=== PATIENT | female | born 1995 | race American Indian/Alaskan Native ===

== ENCOUNTER 2021-01-28 08:25 | Outpatient (CLI) | payer BC, MEDICAID ==
[2021-01-28 08:59] VITALS: BP 111/77
== END 2021-01-28 10:36 | disposition home or self-care (01) ==
LOC: TRG 08:25 → APU 08:27 → TRG 10:36
PROVIDERS: ATTEND Obstetrics & Gynecology
DX: O26.893 Other specified pregnancy related conditions, third trimester (principal); N93.9 Abnormal uterine and vaginal bleeding, unspecified; Z3A.38 38 weeks gestation of pregnancy
CPT/HCPCS: 59025

== ENCOUNTER 2021-02-03 11:59 | Inpatient (IN) | payer MEDICAID ==
[2021-02-03] MEDS ORDERED: LIDOCAINE (2%) 20 MG/1 ML VIAL 20 ML MDV INFILTRATI ONE (14:02)
[2021-02-03] MEDS ORDERED: LOPERAMIDE 2 MG CAP PO PRN (14:02)
[2021-02-03] MEDS ORDERED: fentaNYL 100 MCG/2 ML INJ IV PRN (14:02)
[2021-02-03] MEDS ORDERED: BUTORPHANOL 2 MG/1 ML INJ IV PRN ×2 (14:02)
[2021-02-03] MEDS ORDERED: TERBUTALINE 1 MG/1 ML INJ SUB-Q PRN (14:02)
[2021-02-03] MEDS ORDERED: CARBOPROST TROMETHAMINE 250 MCG/1 ML INJ IM PRN (14:02)
[2021-02-03] MEDS ORDERED: METHYLERGONOVINE MALEATE 0.2 MG/ML VIAL IM PRN (14:02)
[2021-02-03] MEDS ORDERED: miSOPROStol 200 MCG TAB PR PRN (14:02)
[2021-02-03] MEDS ORDERED: ACETAMINOPHEN 325 MG TAB PO PRN (14:02)
[2021-02-03] MEDS ORDERED: ePHEDrine SULFATE 50 MG/1 ML INJ IV PRN ×2 (14:02→16:59)
[2021-02-03] MEDS ORDERED: OXYTOCIN 10 UNIT/1 ML INJ IM PRN (14:02)
[2021-02-03] MEDS ORDERED: ONDANSETRON 4 MG/2 ML INJ IV PRN ×2 (14:02→19:59)
[2021-02-03] MEDS ORDERED: LACTATED RINGERS 1,000 ML IV SCH (14:15)
[2021-02-03 14:47] LABS: Hematocrit 36.8 % (30.3-42.9); Hemoglobin 12.7 gm/dl (10.1-14.3); Mean Corpuscular HGB Conc 35 % (30-34); Mean Corpuscular Volume 97 fl (79-97); Platelet Count 174 K/mm3 (140-440); Red Cell Distribution Width 13.5 % (13.2-15.2)
[2021-02-03] MEDS ORDERED: OXYTOCIN DRIP 30 UNITS/500 ML BAG IV SCH ×2 (15:00)
[2021-02-03] MEDS ORDERED: NALOXONE 2 MG/2 ML INJ IV PRN (16:59)
[2021-02-03] MEDS ORDERED: fentaNYL-BUPIV 2 MCG/ML-0.125% 200 MCG/100 ML BAG EPIDURAL SCH (17:00)
--- NOTE | 2021-02-03 18:45 | History and Physical Report ---
History of Present Illness Date of examination: 02/03/21 Date of admission: 02/03/21 12:00 Chief complaint: I am in labor History of present illness: Patient is 25-year-old 1 para 0 who presents at 39-2/7 weeks in active labor. Patient received care at [facility]. She has had uncomplicated course. She is GBS negative. Past History Past Medical History: no pertinent history Past Surgical History: no surgical history Family/Genetic History: none Social history: single - Obstetrical History Expected Date of Delivery: 02/08/21 Actual Gestation: 39 Week(s) 2 Day(s) : 1 Para: 0 Number of Living Children: 0 Medications and Allergies Allergies Allergy/AdvReac Type Severity Reaction Status Date / Time No Known Allergies Allergy Verified 02/20/14 23:05 Home Medications Medication Instructions Recorded Confirmed Last Taken Type Acetamin/Codeine 120-12Mg/5 ml 10 ml PO TID PRN #120 ml 02/21/14 02/03/21 Unknown Rx [Tylenol/Codeine] Amoxicillin [Trimox CAP] 500 mg PO Q8H #21 capsule 02/21/14 02/03/21 Unknown Rx Ondansetron [Zofran Odt] 8 mg PO Q8H PRN #14 tab.rapdis 02/21/14 02/03/21 Unknown Rx Active Meds: Active Medications Acetaminophen (Acetaminophen 325 Mg Tab) 650 mg PO Q4H PRN PRN Reason: Pain, Mild (1-3) Butorphanol Tartrate (Butorphanol 2 Mg/1 Ml Inj) 1 mg IV Q2H PRN PRN Reason: Pain, Moderate(4-6) LABOR PAIN Butorphanol Tartrate (Butorphanol 2 Mg/1 Ml Inj) 2 mg IV Q2H PRN PRN Reason: Pain , Severe (7-10) Carboprost Tromethamine (Carboprost Tromethamine 250 Mcg/1 Ml Inj) 250 mcg IM ONCE PRN PRN Reason: Uterine Bleeding Ephedrine Sulfate (Ephedrine Sulfate 50 Mg/1 Ml Inj) 10 mg IV Q2M PRN PRN Reason: Hypotension Fentanyl (Fentanyl 100 Mcg/2 Ml Inj) 100 mcg IV Q2H PRN PRN Reason: Pain,Severe (7-10) LABOR PAIN Last Admin: 02/03/21 18:08 Dose: 100 mcg Documented by: Oxytocin/Sodium Chloride (Pitocin/Ns 30 Unit/500ml) 30 units in 500 mls @ 4 mls/hr IV TITR ENEIDA; Protocol Last Admin: 02/03/21 16:15 Dose: 2 ml/hr, 2 mls/hr Documented by: Lactated Ringer's (Lactated Ringers) 1,000 mls @ 125 mls/hr IV DIRECT ENEIDA Last Admin: 02/03/21 14:49 Dose: 125 mls/hr Documented by: Oxytocin/Sodium Chloride (Pitocin/Ns 30 Unit/500ml) 30 units in 500 mls @ 40 mls/hr IV TITR ENEIDA; Protocol Fentanyl/Bupivacaine/Sodium Chlor (Fentanyl-Bupiv 2 Mcg/Ml-0.125%) 200 mcg in 100 mls @ 12 mls/hr EPIDURAL TITR ENEIDA; Protocol Loperamide HCl (Loperamide 2 Mg Cap) 2 mg PO ONCE PRN PRN Reason: give with Hemabate Methylergonovine Maleate (Methylergonovine Maleate 0.2 Mg/Ml Vial) 0.2 mg IM ONCE PRN PRN Reason: Uterine Bleeding Mineral Oil (Mineral Oil 30 Ml Oral Liqd) 30 ml PO QHS PRN PRN Reason: Constipation Last Admin: 02/03/21 18:09 Dose: 30 ml Documented by: Misoprostol (Misoprostol 200 Mcg Tab) 800 mcg MN ONCE PRN PRN Reason: Uterine Bleeding Naloxone HCl (Naloxone 2 Mg/2 Ml Inj) 0.2 mg IV Q5M PRN PRN Reason: Respiratory sedation Ondansetron HCl (Ondansetron 4 Mg/2 Ml Inj) 4 mg IV Q8H PRN PRN Reason: Nausea And Vomiting Oxytocin (Oxytocin 10 Unit/1 Ml Inj) 10 unit IM ONCE PRN PRN Reason: Uterine Bleeding Terbutaline Sulfate (Terbutaline 1 Mg/1 Ml Inj) 0.25 mg SUB-Q ONCE PRN PRN Reason: Hyperstimulation/Hypertonicity Review of Systems All systems: negative Constitutional: weight gain Genitourinary: pelvic pain, contractions - Vital Signs Vital signs: Vital Signs Pulse Pulse Ox 68 100 02/03/21 12:34 02/03/21 12:34 Temp Pulse Resp BP Pulse Ox 98.1 F 74 18 99/63 100 02/03/21 17:30 02/03/21 18:29 02/03/21 14:30 02/03/21 18:21 02/03/21 18:29 - Physical Exam Breasts: Cardiovascular: Regular rate, Normal S1, Normal S2 Lungs: Positive: Clear to auscultation, Normal air movement Abdomen: Positive: normal appearance, soft, normal bowel sounds. Negative: distention, tenderness Genitourinary (Female): Positive: normal external genitalia, normal perenium Vulva: both: normal Vagina: Positive: normal moisture. Negative: discharge Cervix: Negative: lesion, discharge Uterus: Positive: normal size, normal contour Adnexa: both: normal Anus/Rectum: Positive: normal perianal skin, heme negative. Negative: rectal mass, hemorrhoids Extremities: Deep Tendon Reflex Grade: Normal +2 - Obstetrical FHR: auscultation normal Cervical Dilatation: 5 Cervical Effacement Percentage: 90 station: -2 Uterine Contraction Pattern: Regular Uterine Tone Measurement Phase: Contraction Uterine Contraction Intensity: Moderate Results Result Diagrams: 02/03/21 13:40 Abnormal lab results 02/03/21 Range/Units 13:40 MCH 34 H (28-32) pg MCHC 35 H (30-34) % All other labs normal. Assessment and Plan 25-year-old 1 para 0 here in active labor. Will admit for same. Patient does not want an epidural therefore we will proceed with only IV pain medicine. Anticipate .
--- NOTE | 2021-02-03 18:51 | Procedure Note ---
OB Delivery Note - Delivery Date of Delivery: 02/03/21 Surgeon: SHANIQUE WATT Estimated blood loss: 200cc - Vaginal Delivery presentation: vertex Delivery position: OA Intrapartum events: none Delivery induction: none Delivery augmentation: rupture of membranes, pitocin Delivery monitor: external FHT, external uterine Route of delivery: Delivery placenta: spontaneous Delivery cord: nuchal cord, 3 umbilical vessels Episiotomy: none Delivery laceration: 2nd degree Delivery repair: vicryl Anesthesia: local Delivery comments: Viable male delivered over intact perineum with loose nuchal cord easily reduced. Weight 7 pounds 8 ounces Apgars 8 and 9. Infant had spontaneous cry was placed on maternal abdomen. Cord was clamped and cut when done pulsating. Placenta was delivered spontaneously and intact. Second-degree laceration was repaired with 2-0 Vicryl after being injected with 18 cc of lidocaine. There was excellent hemostasis at the end the procedure. Patient tolerated procedure well - A at 1 minute: 8 at 5 minutes: 9 Infant Gender: Male (7pomds 8 ounces)
[2021-02-03] MEDS ORDERED: WITCH HAZEL/ GLYCERIN PAD TP PRN (19:59)
[2021-02-03] MEDS ORDERED: diphenhydrAMINE 25 MG CAP PO PRN (19:59)
[2021-02-03] MEDS ORDERED: PROMETHAZINE 25 MG RECT SUPP PR PRN (19:59)
[2021-02-03] MEDS ORDERED: LANOLIN/ZINC/DIMETHICONE (LANSINOH) 7 GM TP PRN (19:59)
[2021-02-03] MEDS ORDERED: PROMETHAZINE 25 MG TAB PO PRN (19:59)
[2021-02-03] MEDS ORDERED: HYDROcodone/ACETAMINOPHEN 5-325 MG TAB PO PRN (19:59)
[2021-02-03] MEDS ORDERED: MAGNESIUM HYDROXIDE (MOM) ORAL LIQD UDC PO PRN (19:59)
[2021-02-03] MEDS ORDERED: MINERAL OIL 30 ML ORAL LIQD PO PRN (22:00)
[2021-02-03] MEDS: DOCUSATE SODIUM 100 MG CAP PO SCH (23:41)
[2021-02-03] MEDS: IBUPROFEN 600 MG TAB PO SCH (23:41)
[2021-02-04 05:54] LABS: Hematocrit 33.2 % (30.3-42.9); Hemoglobin 11.5 gm/dl (10.1-14.3)
--- NOTE | 2021-02-04 08:09 | Progress Note ---
Assessment and Plan A: PPD#1 s/p at term P: Routine care Anticipate discharge in the AM Subjective - Subjective Date of service: 02/04/21 Principal diagnosis: s/p at term Interval history: Pt without complaints this morning. No overnight events. Patient reports: appetite normal, voiding normally, pain well controlled, ambulating normally : doing well Objective - Vital Signs Latest vital signs: Vital Signs Temp Pulse Resp BP Pulse Ox Pulse Ox 02/04/21 04:34 98.2 F 83 20 107/61 100 02/04/21 00:06 98.9 F 90 20 118/79 99 02/03/21 23:41 12 02/03/21 20:35 98.1 F 86 99 02/03/21 19:24 63 100 02/03/21 19:22 66 L 02/03/21 19:19 68 100 02/03/21 19:18 61 118/77 02/03/21 19:16 66 93 02/03/21 19:14 58 L 100 02/03/21 19:09 83 98 02/03/21 19:04 71 86 02/03/21 19:03 60 118/74 02/03/21 19:00 97.5 F L 18 02/03/21 18:59 80 100 02/03/21 18:56 64 115/80 02/03/21 18:54 72 100 02/03/21 18:49 67 100 02/03/21 18:48 62 105/69 02/03/21 18:44 68 98 02/03/21 18:39 73 99 02/03/21 18:34 71 100 02/03/21 18:30 98.4 F 02/03/21 18:29 74 100 02/03/21 18:24 84 100 02/03/21 18:21 80 99/63 02/03/21 18:19 75 100 02/03/21 18:15 75 107/61 02/03/21 18:14 83 99 02/03/21 18:09 72 100 02/03/21 18:05 88 77 L 02/03/21 18:04 77 99 02/03/21 17:59 78 97 02/03/21 17:54 77 100 02/03/21 17:49 72 80 L 02/03/21 17:44 70 100 02/03/21 17:42 94 H 90 02/03/21 17:39 76 95 02/03/21 17:34 71 91 02/03/21 17:30 98.1 F 02/03/21 17:29 78 94 02/03/21 17:24 78 95 02/03/21 17:23 72 92 02/03/21 17:19 67 98 02/03/21 17:15 61 119/76 02/03/21 17:14 65 100 02/03/21 16:16 68 112/71 02/03/21 14:30 98.6 F 18 99 02/03/21 14:22 69 123/81 02/03/21 13:50 79 90 02/03/21 13:49 71 99 02/03/21 13:44 83 100 02/03/21 13:40 85 94 02/03/21 13:39 95 H 99 02/03/21 13:34 71 99 02/03/21 13:31 88 84 02/03/21 13:29 86 99 02/03/21 13:24 73 100 02/03/21 13:19 77 99 02/03/21 13:15 87 88 02/03/21 13:14 91 H 97 02/03/21 13:09 75 100 02/03/21 13:04 85 98 02/03/21 13:00 87 89 02/03/21 12:59 80 98 02/03/21 12:54 83 99 02/03/21 12:50 90 93 02/03/21 12:49 90 95 02/03/21 12:44 77 99 02/03/21 12:39 88 99 02/03/21 12:36 98.6 F 20 02/03/21 12:35 75 121/79 02/03/21 12:34 68 100 Intake and Output 02/03/21 02/04/21 02/04/21 22:59 06:59 14:59 Intake Total 360 Output Total 1400 Balance -1040 Intake: Oral 360 Output: Urine 1400 Void 1400 Other: Total, Intake Amount 120 Total, Output Amount 800 # Voids Void 1 2 Estimated Blood Loss 250 - Exam Breasts: Present: deferred Abdomen: Present: soft Uterus: Present: fundal height at umbilicus Extremities: Present: normal - Labs Labs: Abnormal lab results 02/03/21 Range/Units 13:40 MCH 34 H (28-32) pg MCHC 35 H (30-34) %
--- NOTE | 2021-02-04 08:12 | Discharge Summary ---
Providers - Providers Date of Admission: 02/03/21 12:00 Date of discharge: 02/05/21 Attending physician: AMANDEEP SMITH Primary care physician: AMANDEEP SMITH Hospitalization Reason for admission: active labor Delivery: Procedure details: Please see delivery note. Episiotomy: none Laceration: 2nd degree Other procedures: none complications: none Discharge diagnosis: IUP at term delivered baby: male Hospital course: Patient was admitted in active labor and went on to have a spontaneous vaginal delivery which she tolerated well. The remainder of her course was uncomplicated. She will follow-up in the office in 4 weeks. Condition at discharge: Stable Disposition: DC- TO HOME OR SELFCARE - Discharge Diagnoses (1) Term of male Status: Acute (2) Spontaneous vaginal delivery Status: Acute Plan - Discharge Medications Prescriptions: Ibuprofen [Motrin] 600 mg PO Q6H PRN #30 tablet PRN Reason: Pain - Provider Discharge Summary Activity: routine, no sex for 6 weeks, no heavy lifting 4 weeks, no strenuous exercise, other Diet: routine Instructions: routine Additional instructions: [] Smoking cessation referral if applicable(refer to patient education folder for contact #) [] Refer to [facility] Booklet Call your doctor immediately for: * Fever > 100.5 * Heavy vaginal bleeding ( >1 pad per hour) * Severe persistent headache * Shortness of breath * Reddened, hot, painful area to leg or breast * Drainage or odor from incision. * Keep incision clean and dry at all times and follow doctor's instructions regarding bathing/showering - Follow up plan Follow up: FRIDA MARIN [facility] [Advanced Practice Nurse] - 03/05/21 (Please call to schedule appt )
[2021-02-04] MEDS ORDERED: BENZOCAINE/MENTHOL 20/0.5% TOP SPRAY 56 GM TP PRN (08:30)
[2021-02-04] MEDS: IBUPROFEN 600 MG TAB PO SCH ×2 (09:41→20:16)
[2021-02-04] MEDS: DOCUSATE SODIUM 100 MG CAP PO SCH ×2 (09:42→22:47)
[2021-02-04] MEDS: PRENATAL VIT27-FE FUMARATE-FOLIC ACID VIT TAB PO SCH (09:42)
[2021-02-05 08:19] VITALS: BP 120/80
[2021-02-05] MEDS: DOCUSATE SODIUM 100 MG CAP PO SCH (10:16)
[2021-02-05] MEDS: PRENATAL VIT27-FE FUMARATE-FOLIC ACID VIT TAB PO SCH (10:16)
[2021-02-05] MEDS: IBUPROFEN 600 MG TAB PO SCH (10:16)
== END 2021-02-05 12:00 | disposition home or self-care (01) | DRG 775 ==
LOC: TRG 11:59 → APU 12:00 → LD 12:00 → TRG 14:02 → OB 20:05
PROVIDERS: ADMIT Obstetrics & Gynecology; ATTEND Obstetrics & Gynecology
PROC: 10E0XZZ Delivery of Products of Conception, External Approach (ICD-10-PCS; principal; 2021-02-03)
PROC: 0KQM0ZZ Repair Perineum Muscle, Open Approach (ICD-10-PCS; 2021-02-03)
DX: O69.81X0 Labor and delivery complicated by cord around neck, without compression, not applicable or unspecified (principal); Z3A.39 39 weeks gestation of pregnancy; Z37.0 Single live birth; O70.1 Second degree perineal laceration during delivery; Z20.822 Contact with and (suspected) exposure to COVID-19
CPT/HCPCS: 36415; 85014; 85018; 85027; 86592; 86850; 86900; 86901; G0378; J2590; J3010; J7120; U0003